=== PATIENT | female | born 1955 | race Caucasian/White ===

== ENCOUNTER 2021-11-03 21:23 | Emergency (ER) | payer MEDICAID ==
[2021-11-03] MEDS ORDERED: TETANUS,DIPH,PERTUSS(ACELL) VACCINE 0.5 ML SYRINGE IM ONE (23:45)
[2021-11-03] MEDS ORDERED: SODIUM CHLORIDE 0.9% 1000 ML 1,000 ML IV ONE (23:46)
--- NOTE | 2021-11-03 23:48 | Emergency Department Report ---
ED General Adult HPI - General Chief complaint: Fall Stated complaint: GLF/+LOC Time Seen by Provider: 11/03/21 23:24 Source: patient, RN notes reviewed Mode of arrival: Ambulatory Limitations: Other (Patient is a poor historian.) - History of Present Illness Initial comments: This patient is a 66-year-old female. She is not known to myself previously. She is visiting from [place]. Her past medical history includes cervical spine disc disease, with history of cervical spine fusion, chronic disability in her right hand, and chronic pain, and she reports that she is on gabapentin. She presents to the ER today after a fall recently. She does not remember how she fell. She complains today of right upper quadrant abdominal pain, right lateral thoracic chest pain, left ankle pain, right forearm abrasion. She has chronic weakness in her right hand, which she states is at her baseline. She reports multiple allergies to medicines, including bleeding when she takes Robaxin, and swelling when she takes Tylenol. She reports that she takes gabapentin at home. She denies dysuria. She denies homicidality and suicidality. Initially she was confused to the emergency room, but while in the emergency room, her mental status improved. She stated that she could take hydromorphone for pain. She also reports that she is visiting from [place], staying with her daughter, and reports that her daughter has a roommate who drove her here to the emergency room. -: hour(s), days(s) Location: head, chest, abdomen, right, upper extremity Improves with: rest Worsens with: movement - Related Data Previous Rx's Medication Instructions Recorded Last Taken Type Metoclopramide [Reglan] 10 mg PO QID PRN #30 tablet 11/04/21 Unknown Rx Allergies Allergy/AdvReac Type Severity Reaction Status Date / Time No Known Allergies Allergy Verified 11/04/21 01:05 ED Review of Systems ROS: Stated complaint: GLF/+LOC Other details as noted in HPI Constitutional: denies: fever Eyes: denies: eye discharge ENT: denies: epistaxis Respiratory: denies: cough Cardiovascular: chest pain (Right-sided chest wall pain) Gastrointestinal: abdominal pain (Right-sided abdominal pain) Musculoskeletal: joint swelling, arthralgia, myalgia Neurological: weakness, confusion, other (Chronic weakness in the right hand) ED Past Medical Hx - Past Medical History Previous Medical History?: Yes Hx of Cancer: Yes (BREAST) Additional medical history: DEGENERATIVE DISC DISEASE AND SPINAL STENOSIS. - Surgical History Past Surgical History?: No - Medications Home Medications: Home Medications Medication Instructions Recorded Confirmed Last Taken Type Metoclopramide [Reglan] 10 mg PO QID PRN #30 tablet 11/04/21 Unknown Rx ED Physical Exam - General Limitations: Other (Patient cannot recall the specifics of the event) General appearance: alert, in no apparent distress, anxious - Head Head exam: Present: atraumatic, normocephalic - Eye Eye exam: Present: normal appearance, PERRL, EOMI, other (Visual acuity is intact to finger counting in color perception at a close distance). Absent: nystagmus - ENT ENT exam: Present: normal exam, normal orophraynx, mucous membranes moist, normal external ear exam - Neck Neck exam: Present: normal inspection, full ROM. Absent: tenderness, meni ngismus - Respiratory Respiratory exam: Present: normal lung sounds bilaterally, chest wall tenderness (There is right-sided chest wall tenderness). Absent: respiratory distress, wheezes, rales, rhonchi, stridor - Cardiovascular Cardiovascular Exam: Present: regular rate, normal rhythm. Absent: bradycardia, tachycardia, irregular rhythm, normal heart sounds, systolic murmur, diastolic murmur, rubs, gallop - GI/Abdominal GI/Abdominal exam: Present: soft, tenderness, guarding, other (There is right flank and right upper quadrant tenderness.). Absent: distended, rebound, rigid, pulsatile mass - Extremities Exam Extremities exam: Present: full ROM (Right shoulder, right elbow. Chronic decreased range of motion in the right hand), other (2+ pulses noted in the bilateral upper and lower extremities. There is no long bony tenderness in the left upper extremity, and bilateral lower extremity). Absent: normal inspection (There is a right forearm abrasion), calf tenderness - Back Exam Back exam: Present: normal inspection, paraspinal tenderness. Absent: tenderness, CVA tenderness (R), CVA tenderness (L), vertebral tenderness - Neurological Exam Neurological exam: Present: alert (Sensation is intact to light touch, pinprick, and proprioception in the bilateral upper and lower extremities.), oriented X3 (The patient is awake and alert to name, location, month. She is able to name the current president [facility], and the prior brand analyst. She is able to tell me that she is from [place], and that she is staying with her daughter, and her daughters remain), normal gait, reflexes normal (2+ biceps, triceps, quadriceps reflex bilaterally. Brisk and downgoing plantar reflexes bilaterally), other (5 out of 5 strength left upper extremity, and bilateral lower extremities. 5 out of 5 strength right arm and right elbow. Chronic decreased strength right hand.) - Psychiatric Psychiatric exam: Present: anxious. Absent: homicidal ideation, suicidal ideation - Skin Skin exam: Present: warm, abrasion (There is a left forearm abrasion) ED Course Vital Signs 11/03/21 11/04/21 11/04/21 22:13 02:00 02:16 Temperature 99.0 F Pulse Rate 93 H 76 80 Respiratory 16 19 12 Rate Blood Pressure 122/80 122/80 Blood Pressure 166/103 [Left] O2 Sat by Pulse 97 96 98 Oximetry 11/04/21 11/04/21 11/04/21 02:20 02:30 02:41 Temperature Pulse Rate 80 Respiratory 14 17 18 Rate Blood Pressure 148/70 Blood Pressure [Left] O2 Sat by Pulse 98 96 Oximetry 11/04/21 11/04/21 11/04/21 02:46 03:11 03:21 Temperature Pulse Rate 78 87 Respiratory 12 18 17 Rate Blood Pressure 162/89 162/89 Blood Pressure [Left] O2 Sat by Pulse 92 94 Oximetry 11/04/21 11/04/21 11/04/21 03:30 04:00 04:16 Temperature Pulse Rate 80 75 94 H Respiratory 15 14 20 Rate Blood Pressure 164/85 166/86 166/86 Blood Pressure [Left] O2 Sat by Pulse 93 94 95 Oximetry 11/04/21 11/04/21 11/04/21 04:30 04:46 05:00 Temperature Pulse Rate 79 81 78 Respiratory 13 14 13 Rate Blood Pressure 166/86 166/86 166/86 Blood Pressure [Left] O2 Sat by Pulse 97 95 94 Oximetry 11/04/21 11/04/21 05:16 05:46 Temperature Pulse Rate 82 84 Respiratory 14 15 Rate Blood Pressure 166/86 166/86 Blood Pressure [Left] O2 Sat by Pulse 95 95 Oximetry - Reevaluation(s) Reevaluation #1: 11/04/21 00:44 Differential diagnosis, including but not limited to: Concussion, closed head injury, cervical spine injury, thoracic injury, intra-abdominal injury, chronic right hand weakness, right forearm abrasion 11/04/21 00:45 Assessment and plan: 66-year-old female, status post fall yesterday, who cannot recall the context of the fall. Suspect that patient has a concussion. She presents as awake to name, location, and is able to provide a number of details, including that she is from [place], knows the current president ("I do not like him very much .") She is also able to name the former president "I liked him better." The patient thinks that she has a headache but is not certain. She also has right forearm pain, does not know the details of her past tetanus vaccination status and has right-sided thoracic pain, as well as right upper quadrant abdominal pain. She walks with a steady gait with a cane. Sensation is intact to light touch, pinch, proprioception, and her reflexes are intact. She has chronic weakness in her right hand which she states is chronic. Unfortunately, the patient states that she has a number of allergies, including Tylenol and Robaxin. She also does not know what pain medication she can and cannot take. Have recommended CT scan of the brain, cervical spine, chest abdomen pelvis for the aforementioned. Given closed head injury, inability to recall what happened, CAT scan of the brain is indicated. For the aforementioned reasons, the C-spine cannot be cleared, and therefore, a CT scan of the cervical spine is indicated. She is markedly tender in her right upper quadrant, and right lateral thorax. Laboratory studies so far were nonactionable. Urinalysis pending, EKG pending. Assuming unremarkable EKG, and unremarkable troponin, blunt cardiac injury is very unlikely 11/04/21 02:[address] scans pending. Patient ambulating with a gait. She is laughing and talking to ER staff members and is very engaging. She is still not able to recall the specifics of her allergies. 11/04/21 02:31 Patient remains awake, alert and conversant at this time. She now reports that she can receive hydromorphone for pain without consequence. She reports that morphine sometimes makes her nauseous and itchy. She cannot receive IV in her l eft upper extremity secondary to history of breast cancer. For similar reasons, no sticks in the left upper extremity. A left-sided EJ is placed by myself with one attempt with the patient's permission. Please see procedure note. The patient tolerated this procedure well. She is also complaining of left ankle pain now. She has left medial and lateral malleolus tenderness, on my repeat examination. We will obtain plain films 11/04/21 04:05 Patient's mental status continues to improve. She reports that she takes gabapentin at home for her chronic pain. CT scan brain and cervical spine n egative for acute traumatic findings. Chronic findings noted. CT scan chest negative for acute traumatic findings. CT scan abdomen pelvis negative for acute traumatic findings. Left ankle x-ray shows the following: Liver panel within normal limits, cholelithiasis likely chronic and asymptomatic . Hiatal hernia likely chronic and asymptomatic. Patient observed in this ER for hours without clinical decompensation. At this point time, she is suitable for discharge with outpatient follow-up 11/04/21 05:00 X-ray of the ankle shows DJD. No fracture or dislocation This was also discussed with the interpreting radiologist, Dr. Thornton. - EJ/Peripheral Line Neck L Time Out Performed: Yes Indications: nurses unable to establis Skin Cleansed in Sterile Fashion: Yes Size: 20 Dressing Placed: Tegaderm Patient Tolerated Procedure: well ED Medical Decision Making - Lab Data Result diagrams: 11/03/21 23:53 11/03/21 23:53 Vital Signs 11/03/21 22:13 Temperature 99.0 F Pulse Rate 93 H Respiratory 16 Rate Blood Pressure 166/103 [Left] O2 Sat by Pulse 97 Oximetry Lab Results 11/03/21 11/03/21 11/03/21 Range/Units 23:53 23:53 23:53 WBC 5.8 (4.5-11.0) K/mm3 RBC 4.74 (3.65-5.03) M/mm3 Hgb 14.4 H (10.1-14.3) gm/dl Hct 44.6 H (30.3-42.9) % MCV 94 (79-97) fl MCH 30 (28-32) pg MCHC 32 (30-34) % RDW 14.1 (13.2-15.2) % Plt Count 184 (140-440) K/mm3 Lymph % (Auto) 35.6 H (13.4-35.0) % Fergus % (Auto) 8.1 H (0.0-7.3) % Eos % (Auto) 1.1 (0.0-4.3) % Baso % (Auto) 1.3 (0.0-1.8) % Lymph # (Auto) 2.1 (1.2-5.4) K/mm3 Fergus # (Auto) 0.5 (0.0-0.8) K/mm3 Eos # (Auto) 0.1 (0.0-0.4) K/mm3 Baso # (Auto) 0.1 (0.0-0.1) K/mm3 Seg Neutrophils % 53.9 (40.0-70.0) % Seg Neutrophils # 3.1 (1.8-7.7) K/mm3 Sodium 141 (137-145) mmol/L Potassium 4.5 (3.6-5.0) mmol/L Chloride 103.6 (98-107) mmol/L Carbon Dioxide 23 (22-30) mmol/L Anion Gap 19 mmol/L BUN 9 (7-17) mg/dL Creatinine 0.9 (0.6-1.2) mg/dL Estimated GFR > 60 ml/min BUN/Creatinine Ratio 10 % Glucose 95 (65-100) mg/dL Calcium 9.5 (8.4-10.2) mg/dL Total Bilirubin 0.40 (0.1-1.2) mg/dL AST 14 (5-40) units/L ALT 18 (7-56) units/L Alkaline Phosphatase 105 (35-129) units/L Total Creatine Kinase 99 (30-135) units/L Troponin T < 0.010 (0.00-0.029) ng/mL Total Protein 7.6 (6.3-8.2) g/dL Albumin 4.1 (3.9-5) g/dL Albumin/Globulin Ratio 1.2 % Plasma/Serum Alcohol < 0.01 (0-0.07) % - EKG Data -: EKG Interpreted by Al EKG shows normal: sinus rhythm Rate: normal - EKG Data When compared to previous EKG there are: previous EKG unavailable 11/04/21 02:05 The EKG is interpreted at 01: 23 Sinus rhythm, rate 82 bpm. Normal axis, normal P wave axis, high left ventricular voltage, QTC 4 4 3 ms. Abnormal EKG. Not a STEMI. No prior for comparison. - Radiology Data Radiology results: pending, report reviewed, image reviewed RIGHT FOREARM 2 VIEWS INDICATION / CLINICAL INFORMATION: Right forearm pain after fall. COMPARISON: None available. FINDINGS: BONES and JOINT(S): No acute fracture or subluxation. No significant arthritis. SOFT TISSUES: No significant abnormality. ADDITIONAL FINDINGS: None. IMPRESSION: 1. No acute findings. Signer Name: Devin Thornton MD Signed: 11/03/2021 11:53 PM Workstation Name: [id number] CT CHEST, ABDOMEN, AND PELVIS WITH IV CONTRAST INDICATION: Right chest and right upper quadrant pain after fall. TECHNIQUE: Axial CT images were obtained through the chest, abdomen, and pelvis after 100 cc Omnipaque [address] scans at this location are performed using CT dose reduction for ALARA by means of automated exposure control. COMPARISON: None available. FINDINGS: HEART: No significant abnormality. THORACIC VASCULATURE: No acute findings. The aorta is normal in caliber. There is mild aortic and moderate coronary atherosclerosis. LYMPH NODES: No significant adenopathy. TRACHEA AND BRONCHI:No significant abnormality. LUNGS: No acute airspace or interstitial abnormality. There is moderate emphysema bilaterally along the upper lobes. No significant pleural effusion. No pneumothorax. LIVER: No significant abnormality. GALLBLADDER/BILE DUCTS: Cholelithiasis without evidence of acute cholecystitis. No biliary ductal dilatation. PANCREAS: No significant abnormality. SPLEEN: No significant abnormality. ADRENALS: No significant abnormality. KIDNEYS/URETERS: No significant abnormality. STOMACH/SMALL BOWEL: There is an uncomplicated small hiatal hernia. No other significant abnormality of the stomach. No significant abnormality of the small bowel. COLON: No significant abnormality. APPENDIX: No significant abnormality. PERITONEUM: No free fluid. No free air. No fluid collection. LYMPH NODES: No significant adenopathy. ABDOMINOPELVIC VASCULATURE: No acute findings. Normal caliber of the abdominal aorta. There is moderate generalized atherosclerosis. URINARY BLADDER: No significant abnormality. REPRODUCTIVE ORGANS: Prior hysterectomy. No significant adnexal abnormality. ADDITIONAL FINDINGS: Saline breast implants appear unremarkable. BONES: No acute findings. There are mild degenerative changes of the spine with expected positioning of a thoracic spine stimulating device. IMPRESSION: 1. No acute abnormality of the chest, abdomen or pelvis. 2. Additional findings as above. Signer Name: Devin Thornton MD Signed: 11/04/2021 2:45 AM Workstation Name: [id number] CT CERVICAL SPINE WITHOUT CONTRAST INDICATION: Neck injury after fall. COMPARISON: None available. TECHNIQUE: Axial, coronal and sagittal CT imaging of the cervical spine without contrast was performed. All CT scans at this location are performed using CT dose reduction for ALARA by means of automated exposure control. FINDINGS: VERTEBRAE:No acute fracture. Normal alignment. DISC SPACES: Moderate discogenic degenerative changes are seen at C3-C4 with mild degenerative changes at C2-C3 and along the atlantoaxial joint. There is unremarkable appearing fusion of C4-C7. FACET JOINTS:No significant abnormality. CENTRAL CANAL: No central canal stenosis or neural foraminal narrowing. SOFT TISSUES:No si gnificant abnormality. LUNG APICES: Moderate emphysema is seen along the lung apices without other significant abnormalities. ADDITIONAL FINDINGS: None IMPRESSION: 1. No acute findings. 2. Moderate cervical spondylosis. Signer Name: Devin Thornton MD Signed: 11/04/2021 2:40 AM Workstation Name: [id number] CT HEAD WITHOUT CONTRAST INDICATION / CLINICAL INFORMATION: Closed head injury, concussion, history of fall. TECHNIQUE: All CT scans at this location are performed using CT dose reduction for ALARA by means of automated exposure control. COMPARISON: None available. FINDINGS: BRAIN PARENCHYMA: No acute intracranial hemorrhage. No evidence of recent infarct. No mass effect or midli ne shift. Probable chronic microvascular ischemic changes are seen along the periventricular white matter. VENTRICULAR SYSTEM/EXTRA-AXIAL SPACES: Ventricles are normal for age. No extra-axial fluid collection. ORBITS: Normal as visualized. SKELETAL SYSTEM/SOFT TISSUES: Normal bones and soft tissues. PARANASAL SINUSES/MASTOID AIR CELLS: No significant abnormality. ADDITIONAL FINDINGS: None. IMPRESSION: 1. No acute intracranial abnormality. Signer Name: Devin Thornton MD Signed: 11/04/2021 2:38 AM Workstation Name: [id number] LEFT ANKLE 3 VIEWS INDICATION / CLINICAL INFORMATION: Left ankle pain. History of fall. COMPARISON: None available. FINDINGS: BONES and JOINT(S): No acute fracture or subluxation. Mild DJD is seen along the ankle with calcaneal enthesophytes. SOFT TISSUES: There is mild generalized edema without other significant abnormalities. ADDITIONAL FINDINGS: None. IMPRESSION: 1. Mild left ankle edema without other acute findings. 2. Mild left ankle DJD. Signer Name: Devin Thornton MD Signed: 11/04/2021 4:04 AM Workstation Name: [id number] Critical care attestation.: If time is entered above; I have spent that time in minutes in the direct care of this critically ill patient, excluding procedure time. ED Disposition Clinical Impression: Closed head injury, Concussion, Right-sided chest wall pain, Acute abdominal pain in right upper quadrant, Abrasion of right forearm, Left ankle pain, Cholelithiases, Hiatal hernia, DJD (degenerative joint disease), cervical Disposition: HOME / SELF CARE / HOMELESS Is pt being admited?: No Does the pt Need Aspirin: No Condition: Good Instructions: Concussion, Adult, [id number], Cholelithiasis Additional Instructions: Recommend that patient not drive a car or operate motor vehicles until cleared to do so by a primary care doctor. Do not take them for medication for the next 2 days, if patient takes this medication. Patient may continue current outpatient gabapentin pain medication, patient should follow-up with her outpatient primary care doctor or pain specialist, to determine what other outpatient pain medication she may take, given her endorsed numerous allergies. CT scan of the brain, cervical spine, chest, abdomen and pelvis did not demonstrate any acute or emergent findings that would require emergent intervention. A number of incidental abnormal findings were noted, which are likely chronic, and should be followed up by an outpatient primary care doctor. Recommend follow-up with a primary medical doctor within the next 3 to 5 days for repeat checkup and evaluation. Advance diet as tolerated, take the Reglan medication as needed for headache and/or nausea. Weightbearing as tolerated with the left lower extremity/ankle, alternate ice packs and heat packs, wear shoes that are well supportive, and continue to use cane. Pain typically gets worse before gets better after mechanical fall. Wash right forearm abrasion with gentle soap and water. Please return to the emergency room right away with new pain, worsened pain, migration of pain, projectile vomiting, change in mental status, confusion, inability to tolerate liquid feeds, new, worsened or different symptoms not present on the initial emergency room evaluation. Prescriptions: Metoclopramide [Reglan] 10 mg PO QID PRN #30 tablet PRN Reason: Nausea Referrals: [facility] [Provider Group] - 3-5 Days
[2021-11-04 00:37] LABS: Alanine Aminotransferase 18 units/L (7-56); Albumin 4.1 g/dL (3.9-5); BUN/Creatinine Ratio 10; Blood Urea Nitrogen 9 mg/dL (7-17); Calcium 9.5 mg/dL (8.4-10.2); Hemolysis Index 3
[2021-11-04 00:39] LABS: Basophils # (Auto) 0.1 K/mm3 (0.0-0.1); Basophils % (Auto) 1.3 % (0.0-1.8); Eosinophils # (Auto) 0.1 K/mm3 (0.0-0.4); Eosinophils % (Auto) 1.1 % (0.0-4.3); Hematocrit 44.6 % (30.3-42.9); Hemoglobin 14.4 gm/dl (10.1-14.3); Lymphocytes # (Auto) 2.1 K/mm3 (1.2-5.4); Lymphocytes % (Auto) 35.6 % (13.4-35.0); Mean Corpuscular HGB Conc 32 % (30-34); Mean Corpuscular Volume 94 fl (79-97); Monocytes # (Auto) 0.5 K/mm3 (0.0-0.8); Monocytes % (Auto) 8.1 % (0.0-7.3); Platelet Count 184 K/mm3 (140-440); Red Blood Count 4.74 M/mm3 (3.65-5.03); Red Cell Distribution Width 14.1 % (13.2-15.2)
[2021-11-04 00:49] LABS: INR 0.96 (0.87-1.13)
[2021-11-04 00:50] LABS: Partial Thromboplastin Time 29.2 Sec. (24.2-36.6)
--- NOTE | 2021-11-04 00:58 | XRay Report ---
RIGHT FOREARM 2 VIEWS INDICATION / CLINICAL INFORMATION: Right forearm pain after fall. COMPARISON: None available. FINDINGS: BONES and JOINT(S): No acute fracture or subluxation. No significant arthritis. SOFT TISSUES: No significant abnormality. ADDITIONAL FINDINGS: None. IMPRESSION: 1. No acute findings. Signer Name: Devin Thornton MD Signed: 11/04/2021 12:53 AM Workstation Name: [id number]
[2021-11-04] MEDS ORDERED: HYDROmorphone 1 MG/1 ML INJ IV ONE (02:33)
--- NOTE | 2021-11-04 03:42 | Cat Scan Report ---
CT HEAD WITHOUT CONTRAST INDICATION / CLINICAL INFORMATION: Closed head injury, concussion, history of fall. TECHNIQUE: All CT scans at this location are performed using CT dose reduction for ALARA by means of automated exposure control. COMPARISON: None available. FINDINGS: BRAIN PARENCHYMA: No acute intracranial hemorrhage. No evidence of recent infarct. No mass effect or midline shift. Probable chronic microvascular ischemic changes are seen along the periventricular whi te matter. VENTRICULAR SYSTEM/EXTRA-AXIAL SPACES: Ventricles are normal for age. No extra-axial fluid collection . ORBITS: Normal as visualized. SKELETAL SYSTEM/SOFT TISSUES: Normal bones and soft tissues. PARANASAL SINUSES/MASTOID AIR CELLS: No significant abnormality. ADDITIONAL FINDINGS: None. IMPRESSION: 1. No acute intracranial abnormality. Signer Name: Devin Thornton MD Signed: 11/04/2021 3:38 AM Workstation Name: [id number]
--- NOTE | 2021-11-04 03:44 | Cat Scan Report ---
CT CERVICAL SPINE WITHOUT CONTRAST INDICATION: Neck injury after fall. COMPARISON: None available. TECHNIQUE: Axial, coronal and sagittal CT imaging of the cervical spine without contrast was performe d. All CT scans at this location are performed using CT dose reduction for ALARA by means of automat ed exposure control. FINDINGS: VERTEBRAE:No acute fracture. Normal alignment. DISC SPACES: Moderate discogenic degenerative changes are seen at C3-C4 with mild degenerative change s at C2-C3 and along the atlantoaxial joint. There is unremarkable appearing fusion of C4-C7. FACET JOINTS:No significant abnormality. CENTRAL CANAL: No central canal stenosis or neural foraminal narrowing. SOFT TISSUES:No significant abnormality. LUNG APICES: Moderate emphysema is seen along the lung apices without other significant abnormalities . ADDITIONAL FINDINGS: None IMPRESSION: 1. No acute findings. 2. Moderate cervical spondylosis. Signer Name: Devin Thornton MD Signed: 11/04/2021 3:40 AM Workstation Name: [id number]
--- NOTE | 2021-11-04 03:50 | Cat Scan Report ---
CT CHEST, ABDOMEN, AND PELVIS WITH IV CONTRAST INDICATION: Right chest and right upper quadrant pain after fall. TECHNIQUE: Axial CT images were obtained through the chest, abdomen, and pelvis after 100 cc Omnipaque [address]. All [address] scans at this location are performed using CT dose reduction for ALARA by means of aut omated exposure control. COMPARISON: None available. FINDINGS: HEART: No significant abnormality. THORACIC VASCULATURE: No acute findings. The aorta is normal in caliber. There is mild aortic and mod erate coronary atherosclerosis. LYMPH NODES: No significant adenopathy. TRACHEA AND BRONCHI:No significant abnormality. LUNGS: No acute airspace or interstitial abnormality. There is moderate emphysema bilaterally along t he upper lobes. No significant pleural effusion. No pneumothorax. LIVER: No significant abnormality. GALLBLADDER/BILE DUCTS: Cholelithiasis without evidence of acute cholecystitis. No biliary ductal dil atation. PANCREAS: No significant abnormality. SPLEEN: No significant abnormality. ADRENALS: No significant abnormality. KIDNEYS/URETERS: No significant abnormality. STOMACH/SMALL BOWEL: There is an uncomplicated small hiatal hernia. No other significant abnormality of the stomach. No significant abnormality of the small bowel. COLON: No significant abnormality. APPENDIX: No significant abnormality. PERITONEUM: No free fluid. No free air. No fluid collection. LYMPH NODES: No significant adenopathy. ABDOMINOPELVIC VASCULATURE: No acute findings. Normal caliber of the abdominal aorta. There is modera te generalized atherosclerosis. URINARY BLADDER: No significant abnormality. REPRODUCTIVE ORGANS: Prior hysterectomy. No significant adnexal abnormality. ADDITIONAL FINDINGS: Saline breast implants appear unremarkable. BONES: No acute findings. There are mild degenerative changes of the spine with expected positioning of a thoracic spine stimulating device. IMPRESSION: 1. No acute abnormality of the chest, abdomen or pelvis. 2. Additional findings as above. Signer Name: Devin Thornton MD Signed: 11/04/2021 3:45 AM Workstation Name: [id number]
--- NOTE | 2021-11-04 03:57 | Cat Scan Report ---
Please see the separately dictated report associated with the CT chest performed concomitantly. Signer Name: Devin Thornton MD Signed: 11/04/2021 3:52 AM Workstation Name: [id number]
[2021-11-04] MEDS ORDERED: GABAPENTIN 300 MG CAP PO ONE (05:00)
--- NOTE | 2021-11-04 05:09 | XRay Report ---
LEFT ANKLE 3 VIEWS INDICATION / CLINICAL INFORMATION: Left ankle pain. History of fall. COMPARISON: None available. FINDINGS: BONES and JOINT(S): No acute fracture or subluxation. Mild DJD is seen along the ankle with calcaneal enthesophytes. SOFT TISSUES: There is mild generalized edema without other significant abnormalities. ADDITIONAL FINDINGS: None. IMPRESSION: 1. Mild left ankle edema without other acute findings. 2. Mild left ankle DJD. Signer Name: Devin Thornton MD Signed: 11/04/2021 5:04 AM Workstation Name: [id number]
[2021-11-04 05:26] VITALS: BP 166/86
--- NOTE | 2021-11-04 12:04 | Electrocardiograph Report ---
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
== END 2021-11-04 06:00 | disposition home or self-care (01) ==
LOC: ED 21:23
DX: S50.811A Abrasion of right forearm, initial encounter (principal); S09.90XA Unspecified injury of head, initial encounter; M25.572 Pain in left ankle and joints of left foot; K80.20 Calculus of gallbladder without cholecystitis without obstruction; K44.9 Diaphragmatic hernia without obstruction or gangrene; M19.90 Unspecified osteoarthritis, unspecified site; R10.11 Right upper quadrant pain; R07.89 Other chest pain; X58.XXXA Exposure to other specified factors, initial encounter; Y93.89 Activity, other specified; Y92.89 Other specified places as the place of occurrence of the external cause; Y99.8 Other external cause status
CPT/HCPCS: 36415; 70450; 71260; 72125; 73090; 73610; 74177; 80053; 82550; 84484; 85025; 85610; 85730; 90471; 90715; 93005; 96361; 96374; 99284; J1170; J7030; Q9967; 80320; 96372; Q0162; G0480